=== PATIENT | female | born 1950 | race Caucasian/White ===

== ENCOUNTER 2019-10-28 11:37 | Observation (INO) | payer MEDICARE, OTHER ==
[~2019-10-28] VITALS: Ht 162.6 cm; Wt 68.1 kg
[~2019-10-28 11:37] MED LIST: ACET500T64 PO; ALBU8.5H5 INH; ASPI325T17 PO; ASTHMANEX INHALER INH; CALC1CAP8 PO; CELE200C PO; CHOL100012 PO; LISI-167 PO; LISI5TAB7 PO; LISINOPRIL PO; MULT-642 PO; OMEP-110 PO; OXYC1TAB7 PO; PRAV20TA2 PO; ZOLP-413 PO
[2019-10-28] MEDS ORDERED: SODIUM CHLORIDE FLUSH 10ML SYR IVF ONE (12:30)
--- NOTE | 2019-10-28 12:35 | NUR ---
pt to ed after possible syncopal episode while singing in [employer] today. pt fell "as if the rug was pulled out from under me" onto chairs behind her. unknown loc. did not hit head. not on blood thinners. pt states passers by reported that her face got red after the event. pt denies cardiac hx. pt connected to all monitors. vss. qrs wide, lbb, with rare ectopy. no needs expressed. call light within reach. orders received. xr complete. piv established and labs drawn. awaiting results.
[2019-10-28 12:44] LABS: BASOPHILS # (AUTO) 0.05 x10^3/uL (0-0.1); BASOPHILS % (AUTO) 1 % (0-1); EOSINOPHILS % (AUTO) 2 % (1-7); LYMPHOCYTES # (AUTO) 1.34 x10^3/uL (1-3.4); LYMPHOCYTES % (AUTO) 23 % (22-44); MD NO; MEAN CORPUSCULAR HEMOGLOBIN 30.2 pg (27.0-34.8); MEAN CORPUSCULAR HGB CONC 33.2 g/dL (32.4-35.8); MEAN CORPUSCULAR VOLUME 91.2 fL (80-100); MEAN PLATELET VOLUME 7.6 fL (7.4-10.4); MONOCYTES % (AUTO) 10 % (2-9); NEUTROPHILS # (AUTO) 3.87 x10^3/uL (1.8-6.8); NEUTROPHILS % (AUTO) 65 % (42-75); PLATELET COUNT 322 x10^3/uL (130-400); RED BLOOD COUNT 5.15 x10^6/uL (3.82-5.3); RED CELL DISTRIBUTION WIDTH 12.8 % (9.6-15.2)
[2019-10-28 12:51] LABS: ALANINE AMINOTRANSFERASE 39 U/L (12-78); ALBUMIN 4.3 g/dL (3.4-5.0); ANION GAP 5 mmol/L (5-15); CALCIUM 10.1 mg/dL (8.5-10.1); CHLORIDE 109 mmol/L (98-107); CREATININE 0.86 mg/dL (0.55-1.02)
[2019-10-28 12:53] LABS: ALKALINE PHOSPHATASE 56 U/L (45-117); BILIRUBIN,TOTAL 0.4 mg/dL (0.2-1.0); TOTAL PROTEIN 7.8 g/dL (6.4-8.2)
[2019-10-28] MEDS: SODIUM CHLORIDE 0.9% 1,000 ML IV SCH (13:34)
--- NOTE | 2019-10-28 13:39 | NUR ---
pt resting in room. vss. no needs expressed. call light within reach. awaiting room assignment.
[2019-10-28] MEDS ORDERED: ALBUTEROL SULFATE 2.5 MG/3 ML NPPB PRN (14:00)
[2019-10-28] MEDS ORDERED: ONDANSETRON 2MG/ML, 2ML IVPush PRN (14:00)
[2019-10-28] MEDS ORDERED: ONDANSETRON ODT 4 MG PO PRN (14:00)
[2019-10-28] MEDS ORDERED: ACETAMINOPHEN 325 MG TABLET PO PRN (14:00)
[2019-10-28] MEDS: ENOXAPARIN 40 MG/0.4 ML SQ SCH (14:00)
--- NOTE | 2019-10-28 14:44 | NUR ---
PT RESTING IN ROOM [facility] FAMILY AT BS. VSS. NO NEEDS EXPRESSED. CALL LIGHT WITHIN REACH. PT DECLINES LOVENOX AND IVF AT THIS TIME. DIET TRAY ORDERED. AWAITING ROOM ASSIGNMENT.
[2019-10-28] MEDS: LACTOBACILLUS CHEW TABLET PO SCH ×2 (16:00→21:37)
--- NOTE | 2019-10-28 17:27 | NUR ---
report to shavonne matias. pt ready for transport.
[2019-10-28 18:45] VITALS: BP 161/65
[2019-10-28] MEDS ORDERED: PRAVASTATIN 20 MG TABLET PO SCH (21:00)
[2019-10-28] MEDS: CALCIUM/VITAMIN D3 250-125 TABLET PO SCH (21:37)
[2019-10-29] VITALS (7 sets, daily range): BP systolic 114–146; BP diastolic 54–76
[2019-10-29] MEDS: SODIUM CHLORIDE 0.9% 1,000 ML IV SCH (05:31)
[2019-10-29 06:08] LABS: BASOPHILS # (AUTO) 0.07 x10^3/uL (0-0.1); BASOPHILS % (AUTO) 1 % (0-1); EOSINOPHILS # (AUTO) 0.17 x10^3/uL (0-0.4); EOSINOPHILS % (AUTO) 3 % (1-7); LYMPHOCYTES # (AUTO) 1.51 x10^3/uL (1-3.4); LYMPHOCYTES % (AUTO) 27 % (22-44); MD NO; MEAN CORPUSCULAR HEMOGLOBIN 30.3 pg (27.0-34.8); MEAN CORPUSCULAR HGB CONC 33.4 g/dL (32.4-35.8); MEAN CORPUSCULAR VOLUME 90.8 fL (80-100); MEAN PLATELET VOLUME 7.6 fL (7.4-10.4); MONOCYTES # (AUTO) 0.61 x10^3/uL (0.2-0.8); MONOCYTES % (AUTO) 11 % (2-9); NEUTROPHILS % (AUTO) 58 % (42-75); PLATELET COUNT 291 x10^3/uL (130-400); RED BLOOD COUNT 4.75 x10^6/uL (3.82-5.3); RED CELL DISTRIBUTION WIDTH 12.6 % (9.6-15.2)
[2019-10-29 06:11] LABS: ANION GAP 3 mmol/L (5-15); CALCIUM 9.8 mg/dL (8.5-10.1); CHLORIDE 110 mmol/L (98-107); CREATININE 0.87 mg/dL (0.55-1.02)
[2019-10-29] MEDS: LACTOBACILLUS CHEW TABLET PO SCH ×2 (08:05→15:22)
[2019-10-29] MEDS: CALCIUM/VITAMIN D3 250-125 TABLET PO SCH (08:06)
[2019-10-29] MEDS ORDERED: LISINOPRIL 5 MG TABLET PO SCH (09:00)
[2019-10-29] MEDS: ENOXAPARIN 40 MG/0.4 ML SQ SCH (15:24)
[2019-10-30] MEDS ORDERED: CHOLECALCIFEROL 1,000 UNIT TABLET PO SCH (09:00)
== END 2019-10-29 17:36 | disposition home or self-care (01) ==
LOC: ED 13:45 → EDIP 13:58 → INTOOBSV 13:58 → 4WST 18:28
PROVIDERS: ADMIT Internal Medicine; ATTEND Internal Medicine
DX: R55 Syncope and collapse (principal); I44.7 Left bundle-branch block, unspecified; R79.89 Other specified abnormal findings of blood chemistry; I10 Essential (primary) hypertension; J45.909 Unspecified asthma, uncomplicated; K21.9 Gastro-esophageal reflux disease without esophagitis; E78.5 Hyperlipidemia, unspecified; M19.90 Unspecified osteoarthritis, unspecified site; E86.0 Dehydration; F10.10 Alcohol abuse, uncomplicated; Z79.899 Other long term (current) drug therapy
CPT/HCPCS: 36415; 71045; 80048; 80053; 85025; 93005; 93306; 96372; 99284; 99285; G0378; J1650

== ENCOUNTER 2019-11-14 17:17 | Emergency (ER) | payer MEDICARE, OTHER ==
[~2019-11-14] VITALS: Ht 162.6 cm; Wt 75.0 kg
--- NOTE | 2019-11-14 17:52 | NUR ---
[facility] W/ . NEAR SYNCOPAL TODAY. HAD NEW DX LBBB 3 WKS AGO WHEN HAD FULL SYNCOPAL EPISODE AND WAS ADMITTED TO [facility]. DENIES CP/SOB. SR ON MONITOR. VSS. A&OX4 GCS 15. C/O WEAKNESS "IF I GET UP NOW I THINK I'LL PASS OUT". EKG AT BEDSIDE, PIV BY EMS, LABS SENT BY [employer]. CALL [facility] IN REACH. FAMILY AT BEDSIDE. FSBS 94.
[2019-11-14 17:59] LABS: ALBUMIN 4.1 g/dL (3.4-5.0); ANION GAP 9 mmol/L (5-15); CALCIUM 9.5 mg/dL (8.5-10.1); CHLORIDE 107 mmol/L (98-107)
[2019-11-14 18:00] LABS: D-DIMER 0.21 ug/mlFEU (0.00-0.52); INTERNATIONAL NORMALIZED RATIO 0.89 (0.93-1.1); PROTHROMBIN TIME 9.4 Seconds (9.6-11.5)
[2019-11-14 18:04] LABS: ALANINE AMINOTRANSFERASE 36 U/L (12-78); ALKALINE PHOSPHATASE 53 U/L (45-117); BILIRUBIN,TOTAL 0.6 mg/dL (0.2-1.0); CREATININE 0.82 mg/dL (0.55-1.02); TOTAL PROTEIN 7.5 g/dL (6.4-8.2); TROPONIN I < 0.015 ng/mL (0.000-0.045)
--- NOTE | 2019-11-14 18:27 | NUR ---
OOB TO BATHROOM W/ 1 ASSIST, C/O DIZZINESS. LABS PENDING.
[2019-11-14 18:46] LABS: BASOPHILS # (AUTO) 0.04 x10^3/uL (0-0.1); BASOPHILS % (AUTO) 1 % (0-1); EOSINOPHILS # (AUTO) 0.11 x10^3/uL (0-0.4); EOSINOPHILS % (AUTO) 2 % (1-7); LYMPHOCYTES # (AUTO) 1.79 x10^3/uL (1-3.4); LYMPHOCYTES % (AUTO) 27 % (22-44); MD SCAN; MEAN CORPUSCULAR HEMOGLOBIN 30.7 pg (27.0-34.8); MEAN CORPUSCULAR HGB CONC 33.8 g/dL (32.4-35.8); MEAN CORPUSCULAR VOLUME 90.8 fL (80-100); MEAN PLATELET VOLUME 8.1 fL (7.4-10.4); MONOCYTES # (AUTO) 0.56 x10^3/uL (0.2-0.8); MONOCYTES % (AUTO) 8 % (2-9); NEUTROPHILS # (AUTO) 4.18 x10^3/uL (1.8-6.8); NEUTROPHILS % (AUTO) 63 % (42-75); PLATELET COUNT 169 x10^3/uL (130-400); RED CELL DISTRIBUTION WIDTH 12.8 % (9.6-15.2)
--- NOTE | 2019-11-14 18:50 | NUR ---
RECHECK. LABS WNL. STILL FEELS WEAK. ASKING FOR WATER. CALL MO[facility]LEY /FAMILY AT BEDSIDE.
--- NOTE | 2019-11-14 19:04 | NUR ---
REPORT TO JASMIN BOLDEN.
--- NOTE | 2019-11-14 19:07 | NUR ---
BS REPORT OF PT FROM KIMI LYNN AND ASSUMING CARE OF PT AT THIS TIME.
--- NOTE | 2019-11-14 20:16 | NUR ---
PT D/C WITH D/C SUMMARY. PT AMBULATED AROUND ER WITH STEADY GAIT AND STATES THAT DIZINESS HAS MOSTLY RESOLVED. PT AND ERP AGREE ON D/C HOME. PT AMBULATES TO REGISTRATION DESK WITH STEADY GAIT AND DENIES ANY OTHER NEEDS PERTAINING TO THIS VISIT.
[2019-11-14 20:18] VITALS: BP 112/80
== END 2019-11-14 20:20 | disposition home or self-care (01) ==
LOC: ED 18:32
DX: R55 Syncope and collapse (principal); R42 Dizziness and giddiness; I10 Essential (primary) hypertension
CPT/HCPCS: 36415; 80053; 84484; 85025; 85379; 85610; 85730; 93005; 99284

== ENCOUNTER → 2019-11-28 | Outpatient (CLI) | payer MEDICARE, OTHER | END | disposition home or self-care (01) | LOC: CVU 15:02 | PROVIDERS: ATTEND Internal Medicine Cardiovascular Disease | DX: R55 Syncope and collapse (principal); I10 Essential (primary) hypertension; E78.5 Hyperlipidemia, unspecified | CPT/HCPCS: 93880 ==

== ENCOUNTER → 2020-02-01 | Outpatient (CLI) | payer MEDICARE, OTHER | END | disposition home or self-care (01) | LOC: CARD 08:24 | PROVIDERS: ATTEND Psychiatry & Neurology Neurology | DX: R56.9 Unspecified convulsions (principal) | CPT/HCPCS: 95819 ==

== ENCOUNTER 2020-05-21 10:32 | Outpatient (CLI) | payer MEDICARE, OTHER | END 2020-05-21 23:59 | disposition home or self-care (01) | LOC: CFH 10:32 | PROVIDERS: ATTEND Internal Medicine | DX: M50.322 Other cervical disc degeneration at C5-C6 level (principal); M50.223 Other cervical disc displacement at C6-C7 level; M48.02 Spinal stenosis, cervical region; M25.78 Osteophyte, vertebrae; G95.9 Disease of spinal cord, unspecified | CPT/HCPCS: 72141 ==

== ENCOUNTER → 2020-08-14 | Outpatient (CLI) | payer MEDICARE, OTHER ==
[~2020-08-14] MED LIST changes: +LISI40TA PO; +[UNRECOGNIZED DRUG - OTHER] INH
[2020-08-14 11:43] LABS: MICROSCOPIC NOT IND
[2020-08-14 11:47] LABS: ANION GAP 5 mmol/L (5-15); CHLORIDE 109 mmol/L (98-107)
[2020-08-14 11:50] LABS: ALANINE AMINOTRANSFERASE 33 U/L (12-78); ALKALINE PHOSPHATASE 54 U/L (45-117); BILIRUBIN,TOTAL 0.3 mg/dL (0.2-1.0); CALCIUM 9.7 mg/dL (8.5-10.1); CREATININE 0.86 mg/dL (0.55-1.02); TOTAL PROTEIN 7.3 g/dL (6.4-8.2)
[2020-08-14 11:52] LABS: INTERNATIONAL NORMALIZED RATIO 0.97 (0.93-1.1); PROTHROMBIN TIME 10.3 Seconds (9.6-11.5)
[2020-08-14 11:56] LABS: BASOPHILS % (AUTO) 1 % (0-1); EOSINOPHILS % (AUTO) 2 % (1-7); LYMPHOCYTES % (AUTO) 21 % (22-44); MEAN CORPUSCULAR HEMOGLOBIN 30.4 pg (27.0-34.8); MEAN CORPUSCULAR HGB CONC 33.3 g/dL (32.4-35.8); MEAN PLATELET VOLUME 7.1 fL (7.4-10.4); MONOCYTES % (AUTO) 10 % (2-9); NEUTROPHILS % (AUTO) 67 % (42-75); PLATELET COUNT 326 x10^3/uL (130-400); RED BLOOD COUNT 4.68 x10^6/uL (3.82-5.3); RED CELL DISTRIBUTION WIDTH 12.3 % (9.6-15.2)
[2020-08-14 12:02] LABS: MD NO
== END | disposition home or self-care (01) ==
LOC: STAR 10:33
PROVIDERS: ATTEND Neurological Surgery
DX: Z01.818 Encounter for other preprocedural examination (principal); M46.02 Spinal enthesopathy, cervical region; I44.7 Left bundle-branch block, unspecified; M47.12 Other spondylosis with myelopathy, cervical region
CPT/HCPCS: 36415; 71046; 72050; 80053; 81003; 85025; 85610; 85730; 93005

== ENCOUNTER → 2020-08-21 | Outpatient (CLI) | payer MEDICARE, OTHER | END | disposition home or self-care (01) | LOC: STAR 09:33 | PROVIDERS: ATTEND Anesthesiology | DX: Z01.812 Encounter for preprocedural laboratory examination (principal); Z20.828 Contact with and (suspected) exposure to other viral communicable diseases | CPT/HCPCS: 36415; 87635 ==

== ENCOUNTER 2021-04-23 09:57 | Outpatient (CLI) | payer MEDICARE, OTHER ==
[~2021-04-23 09:57] MED LIST changes: +FLUT1DIS IH; -LISI40TA PO; +LISI40TA9 PO
[2021-04-23] MEDS ORDERED: GADOTERATE 10 MMOL/20 ML VIAL ONE (13:06)
== END 2021-04-23 23:59 | disposition home or self-care (01) ==
LOC: RAD 09:57
PROVIDERS: ATTEND Psychiatry & Neurology Neurology
DX: R55 Syncope and collapse (principal); F50.89 Other specified eating disorder
CPT/HCPCS: 70544; 70549; A9575